=== PATIENT | male | born 1965 | race Hispanic/Latino ===

== ENCOUNTER 2023-02-08 10:36 | Emergency (ER) | payer OTHER ==
[~2023-02-08] VITALS: Ht 182.9 cm; Wt 172.4 kg
[~2023-02-08 10:36] MED LIST: AMLO-257 PO; CANA300T PO; CEFU500T67 PO; CHOL100046 PO; GEMF600T89 PO; INSLAN SQ; LEVO-70 PO; LEVO50CA4 PO; LOSA100T59 PO; METF-446 PO; VICTOZA
[2023-02-08 11:06] LABS: BASOPHILS % (AUTO) 1.1 % (0.0-5.0); EOSINOPHILS % (AUTO) 3.3 % (0.0-8.0); HEMATOCRIT 39.4 % (42-54); LYMPHOCYTES % (AUTO) 18.1 % (21.0-51.0); MEAN CORPUSCULAR HEMOGLOBIN 27.8 pg (27.0-33.0); MEAN CORPUSCULAR VOLUME 86.8 fL (79-99); MONOCYTES % (AUTO) 7.5 % (3.0-13.0); NEUTROPHILS % (AUTO) 69.2 % (40.0-77.0); PLATELET COUNT (AUTO) 253 K/uL (130-400); RED BLOOD CELL COUNT(AUTO) 4.54 MIL/uL (4.50-6.20); RED CELL DISTRIBUTION WIDTH 14.6 % (11.0-15.5); WHITE BLOOD COUNT (AUTO) 7.6 K/uL (4.8-10.8)
[2023-02-08 11:21] LABS: ALBUMIN 3.1 g/dL (3.5-5.0); CREATININE 1.2 mg/dL (0.5-1.5); POTASSIUM 4.3 mmol/L (3.5-5.1); TOTAL PROTEIN, SERUM 7.1 g/dL (6.0-8.3)
[2023-02-08 11:48] LABS: B-TYPE NATRIURETIC PEPTIDE 6 pg/mL (0-100)
[2023-02-08 13:03] LABS: ABG HCO3 22.5 mmol/L (21.0-28.0); ABG PCO2 30 mmHg (35-48)
[2023-02-08 13:21] VITALS: BP 142/69
== END 2023-02-08 13:31 | disposition left against medical advice (07) ==
LOC: EDH 10:36
DX: S00.81XA Abrasion of other part of head, initial encounter (principal); R55 Syncope and collapse; I10 Essential (primary) hypertension; E11.9 Type 2 diabetes mellitus without complications; Z79.84 Long term (current) use of oral hypoglycemic drugs; Z79.899 Other long term (current) drug therapy; Z98.890 Other specified postprocedural states; X58.XXXA Exposure to other specified factors, initial encounter; Y93.89 Activity, other specified; Y92.89 Other specified places as the place of occurrence of the external cause; Y99.8 Other external cause status
CPT/HCPCS: 36415; 36600; 70450; 71045; 72125; 80053; 82435; 82803; 82947; 83605; 83880; 84132; 84295; 84484; 85018; 85025; 93005

== ENCOUNTER 2023-03-15 14:50 | Emergency (ER) | payer OTHER ==
[~2023-03-15] VITALS: Ht 182.9 cm; Wt 167.8 kg
[2023-03-15] MEDS ORDERED: ONDANSETRON 4MG INJ IVP ONE (15:30)
[2023-03-15] MEDS ORDERED: MORPHINE 4 MG SYG IVP ONE (15:30)
[2023-03-15] MEDS ORDERED: 0.9%NACL 50ML IV SCH (15:30)
[2023-03-15 15:37] LABS: BASOPHILS % (AUTO) 0.9 % (0.0-5.0); EOSINOPHILS % (AUTO) 3.7 % (0.0-8.0); LYMPHOCYTES % (AUTO) 19.7 % (21.0-51.0); MEAN CORPUSCULAR HEMOGLOBIN 27.5 pg (27.0-33.0); MEAN CORPUSCULAR VOLUME 83.3 fL (79-99); MONOCYTES % (AUTO) 7.9 % (3.0-13.0); NEUTROPHILS % (AUTO) 67.3 % (40.0-77.0); PLATELET COUNT (AUTO) 274 K/uL (130-400); RED CELL DISTRIBUTION WIDTH 14.6 % (11.0-15.5); WHITE BLOOD COUNT (AUTO) 8.4 K/uL (4.8-10.8)
[2023-03-15] MEDS ORDERED: ZOSYN 3.375GM +NS 50ML IVPB SCH (15:37)
[2023-03-15 16:02] LABS: CRP QUANTITATIVE 5.1 mg/L (0.00-9.0)
[2023-03-15 16:16] LABS: CREATININE 1.3 mg/dL (0.5-1.5); POTASSIUM 3.8 mmol/L (3.5-5.1)
[2023-03-15 16:21] LABS: ALBUMIN 3.2 g/dL (3.5-5.0); TOTAL PROTEIN, SERUM 6.8 g/dL (6.0-8.3)
[2023-03-15] MEDS ORDERED: FUROSEMIDE 40MG VIAL IV ONE (16:30)
[2023-03-15] MEDS ORDERED: [UNRECOGNIZED DRUG - OTHER] IV ONE (16:30)
[2023-03-15] MEDS ORDERED: 0.9%NACL 1000ML 1,000 ML IV STA (16:59)
[2023-03-15] MEDS ORDERED: MORPHINE 2 MG SYG ONE (17:56)
[2023-03-15] MEDS ORDERED: MORPHINE 2 MG SYG IVP ONE (18:00)
[2023-03-15 18:52] LABS: APPEARANCE,URINE CLEAR (CLEAR); BILIRUBIN,URINE NEGATIVE (NEGATIVE); COLOR,URINE COLORLESS (YELLOW); GLUCOSE, URINE (UA) >=1000 mg/dL (NEGATIVE); KETONES,URINE NEGATIVE (NEGATIVE); LEUKOCYTE ESTERASE ,URINE NEGATIVE Leu/uL (NEGATIVE); MUCUS,URINE RARE LPF (None Seen); NITRATE,URINE NEGATIVE (NEGATIVE); OCCULT BLOOD,URINE NEGATIVE (NEGATIVE); PROTEIN,URINE NEGATIVE (NEGATIVE); RBC,URINE 0-1 /HPF (0-1); UROBILINOGEN,URINE 0.2 mg/dL (0.2-1.0); WBC,URINE 0-1 /HPF (0-1)
[2023-03-15] MEDS ORDERED: CEPH500B PO (19:48)
[2023-03-15] MEDS ORDERED: FURO40TA5 PO (19:48)
[2023-03-15 19:56] VITALS: BP 153/64
[2023-03-15] MEDS ORDERED: ZOSYN 3.375GM+NS 50ML 50 ML IVPB SCH (21:00)
== END 2023-03-15 20:08 | disposition home or self-care (01) ==
LOC: EDH 14:50
DX: L03.116 Cellulitis of left lower limb (principal); E11.9 Type 2 diabetes mellitus without complications; I10 Essential (primary) hypertension; Z79.4 Long term (current) use of insulin; Z79.84 Long term (current) use of oral hypoglycemic drugs
CPT/HCPCS: 99285; 93970; 93925; 96365; 96375; 96366; 80053; 85025; 87040 ×2; 87077; 87186; 83605 ×2; 86140; 81001; 36415; 73620; 96376; J2270 ×2; J2405; J2543; J1940